=== PATIENT | female | born 1950 | race Caucasian/White ===

== ENCOUNTER → 2021-02-23 | Outpatient (CLI) | payer MEDICARE | LOC: HEART 5 02-03 09:00 | DX: I10 Essential (primary) hypertension (principal); R00.2 Palpitations; I34.0 Nonrheumatic mitral (valve) insufficiency; I49.1 Atrial premature depolarization; R93.1 Abnormal findings on diagnostic imaging of heart and coronary circulation | CPT/HCPCS: 93306 ==

== ENCOUNTER 2021-05-07 13:59 | Emergency (ER) | payer MEDICARE ==
[2021-05-07 17:06] LABS: RED BLOOD COUNT 3.91 M/UL (4.00-5.10); WHITE BLOOD COUNT 9.1 K/UL (4.5-11.0)
[2021-05-07 17:47] LABS: BUN/CREATININE RATIO 18 (0-10)
== END 2021-05-08 04:15 | disposition short-term general hospital (02) ==
LOC: ER1 13:59
PROVIDERS: Physician Assistant
DX: G81.92 Hemiplegia, unspecified affecting left dominant side (principal); I10 Essential (primary) hypertension; G40.909 Epilepsy, unspecified, not intractable, without status epilepticus; Z20.822 Contact with and (suspected) exposure to COVID-19; Z88.1 Allergy status to other antibiotic agents; Z79.899 Other long term (current) drug therapy
CPT/HCPCS: 70450; 71045; 73030; 73502; 73590; 80053; 81001; 82550; 82553; 83874; 84484; 85025; 87086; 93005; 99285; Q9967; U0002